=== PATIENT | male | born 1985 | race Caucasian/White ===

== ENCOUNTER 2021-12-28 12:12 | Emergency (ER) | payer BC ==
[~2021-12-28] VITALS: Ht 185.4 cm; Wt 88.5 kg
[2021-12-28 12:38] LABS: MEAN CORPUSCULAR HEMOGLOBIN 33.9 uug (23.8-33.4); MEAN CORPUSCULAR VOLUME 95.4 fL (73.0-96.2); PLATELET COUNT (AUTO) 218 K/uL (152-348)
--- NOTE | 2021-12-28 12:40 | NUR ---
Patient taken to CT Scan.
--- NOTE | 2021-12-28 12:50 | NUR ---
Patient back from CT Scan.
[2021-12-28 13:13] LABS: BILIRUBIN,TOTAL 0.5 mg/dL (0.2-1.0); POTASSIUM 3.7 mmol/L (3.5-5.1); TOTAL PROTEIN, SERUM 7.5 g/dL (6.4-8.2)
[2021-12-28] MEDS ORDERED: TDAP DIPH,PERTUSS,TET VAC/PF 0.5 ML DISP.SYRIN IM ONE (14:18)
--- NOTE | 2021-12-28 14:23 | NUR ---
Patient discharged to home in stable condition. Written and verbal after care instructions given. Patient verbalizes understanding of instructions. Stressed follow up or return to ER for worsening s/s.
[2021-12-28] MEDS: TDAP DIPH,PERTUSS,TET VAC/PF 0.5 ML DISP.SYRIN IM ONE (14:28)
[2021-12-28 14:31] VITALS: BP 135/70
== END 2021-12-28 14:31 | disposition home or self-care (01) ==
LOC: ER 12:13
DX: R55 Syncope and collapse (principal); F31.9 Bipolar disorder, unspecified
CPT/HCPCS: 36415; 70450; 84484; 85025; 90715; 93005; A4663